=== PATIENT | male | born 1985 | race Caucasian/White ===

== ENCOUNTER 2022-12-13 08:49 | Outpatient (CLI) | payer OTHER ==
--- NOTE | 2022-12-13 19:39 | Ultrasound Report ---
PROCEDURE: Ultrasound scrotum INDICATIONS: SPERMATOCELE TECHNIQUE: Real-time scanning was performed of the scrotum and testicles, with image documentation. Color and p ulse Doppler interrogation was performed of both testicles. COMPARISON: None. FINDINGS: Right: Testicle is normal in size at 4.3 x 2.5 x 2.9 cm, and homogenous in echotexture. Small echog enic foci probably reflects mild microlithiasis Epididymis is normal in overall size and morphology. No hydrocele or varicoceles. Overlying scrotal skin is normal in thickness. Left: Testicle is normal in size at 3.7 x 2.0 x 2.8 cm, and homogeneous in echotexture. Small echoge ernesto foci consistent with mild microlithiasis. Epididymis is nonvisualized. No hydrocele or varicocel es. Overlying scrotal skin is normal in thickness. Doppler: Color and pulse Doppler demonstrate normal and symmetric arterial flow in both testicles. IMPRESSION: 1. No evidence of mass lesion. 2. Mild bilateral testicular microlithiasis. 3. Nonvisualized left epididymis Reviewed by: Checo Claros MD on 12/13/2022 6:37 PM GT Approved by: Checo Claros MD on 12/13/2022 6:37 PM AKDT Station ID: [id number]
== END 2022-12-13 08:50 | disposition home or self-care (01) ==
LOC: DI 08:49
PROVIDERS: ATTEND Family Medicine
DX: N43.40 Spermatocele of epididymis, unspecified (principal); N50.89 Other specified disorders of the male genital organs